=== PATIENT | male | born 1980 | race Two or more races ===

== ENCOUNTER → 2021-02-06 | Outpatient (CLI) | payer OTHER ==
--- NOTE | 2021-02-07 05:02 | REP ---
INDICATION: DDD COMPARISON: None. TECHNIQUE: AP, lateral, sunrise views right and left knee. FINDINGS: Left knee demonstrates orthopedic hardware imbedded in the lateral femoral condyle. There is a chronic appearing lucency in the anterior aspect of the tibial metaphysis which is likely chronic and also related to prior trauma or instrumentation. There is mild increased sclerosis along the medial tibial plateau. No acute fracture. No effusion. No further degenerative changes are noted. Right knee demonstrates orthopedic fixation device along the medial aspect of the tibial metaphysis and cortical plug along the lateral femoral metaphysis. There is mild increased sclerosis to the tibial plateau. No acute fracture. No effusion. No further degenerative changes are noted. IMPRESSION: Evidence for prior orthopedic procedures bilaterally. Minimal degenerative changes as above. <Electronically signed by Maury Richmond > 02/07/21 [id number]
--- NOTE | 2021-02-07 05:05 | REP ---
INDICATION: DDD COMPARISON: None. TECHNIQUE: Internal rotation, external rotation, and Y view. FINDINGS: There is an 11 mm curvilinear corticated density adjacent to the humeral head likely representing element of calcific tendinopathy. The glenoid appears intact. The humeral head itself appears normal. The subacromial space measures to approximately 11 mm. The acromioclavicular joint appears normal. IMPRESSION: Corticated density adjacent to the tuberosity of the humeral head suggesting calcific tendinopathy. <Electronically signed by Maury Richmond > 02/07/21 [id number]
== END ==
LOC: M PLAIMG 13:26
PROVIDERS: ATTEND Internal Medicine
DX: Z02.71 Encounter for disability determination (principal)